=== PATIENT | male | born 1995 | race Caucasian/White ===

== ENCOUNTER 2019-12-09 07:16 | Outpatient (CLI) | payer MEDICARE, MEDICAID, SELFPAY ==
--- NOTE | 2019-12-09 07:26 | US_ITS ---
WS: [id number] ULTRASOUND ABDOMEN CLINICAL INFORMATION: RIGT FLANK PAIN COMPARISON: None. FINDINGS: Liver Size: Enlarged Craniocaudal length: 19.2 cm. Echogenicity: Normal. Surface nodularity: None. Mass (size and location): None. Bile ducts Intrahepatic ducts: Normal. Common bile duct diameter: 1.8 mm. Gallbladder Normal. Gallstones: None. Gallbladder sludge: None. Gallbladder wall thickening: None. Pericholecystic fluid: None. Sonographic [place] sign: Absent. Pancreas Not well seen Spleen Splenomegaly: None. Craniocaudal length: 12.6 cm. Right kidney: Polycystic enlarged Hydronephrosis: None. Size: 23.5 cm x 15.8 cm x 12.9 cm Polycystic kidney with largest cysts measuring 5.9 x 4.7 x 4.7 cm and 6.6 x7.7 x 6.9 cm Left kidney: Polycystic enlarged Hydronephrosis: None. Size: 5.0 cm x 13.3 cm x 12.1 cm. Polycystic kidney with largest cyst measuring 5.5 x 6.1 x 5.4 cm and 6.6 x 5.3 x 7.3 cm Abdominal aorta and IVC Visualized portions are normal. Tiny fat-containing umbilical hernia measuring 0.5 x 1.0 x 0.9 cm Ascites: None. US/US abdomen complete* [id number] IMPRESSION: 1. Hepatomegaly measuring 19.2 CM. 2. Normal gallbladder 3. Enlarged polycystic kidneys bilaterally. 4. Normal common bile duct.
== END 2019-12-09 07:17 | disposition home or self-care (01) ==
PROVIDERS: Visit Provider Internal Medicine Nephrology
DX: N28.81 Hypertrophy of kidney (principal); Q61.3 Polycystic kidney, unspecified; R16.0 Hepatomegaly, not elsewhere classified
CPT/HCPCS: 76700

== ENCOUNTER 2019-12-11 08:18 | Outpatient (CLI) | payer MEDICARE, MEDICAID, SELFPAY ==
--- NOTE | 2019-12-11 08:28 | XR_ITS ---
WS: [id number] ABDOMEN 1 VIEW(S) HISTORY: PD CATHETER OBSTRUCTION/ESRD COMPARISON: None available. Normal bowel gas pattern. No suspicious calcifications or masses. No bone abnormality. Peritoneal dialysis catheter enters through the LEFT lateral abdomen with the tip coiled over the sac rum. No obstruction along the course of the catheter is identified. XR/XR abdomen min 2V [id number] IMPRESSION: Peritoneal dialysis catheter coiled overlying the sacrum. No fracture along the catheter course.
== END 2019-12-11 08:19 | disposition home or self-care (01) ==
LOC: RAD 08:21
PROVIDERS: PCP Nurse Practitioner Family; Visit Provider Internal Medicine Nephrology
DX: T85.691A Other mechanical complication of intraperitoneal dialysis catheter, initial encounter (principal); Y84.1 Kidney dialysis as the cause of abnormal reaction of the patient, or of later complication, without mention of misadventure at the time of the procedure; N18.6 End stage renal disease
CPT/HCPCS: 74019

== ENCOUNTER 2020-01-14 08:01 | Outpatient (CLI) | payer MEDICARE, MEDICAID, SELFPAY ==
--- NOTE | 2020-01-14 08:16 | MR_ITS ---
WS: [id number] MRI HEAD WITHOUT CONTRAST TECHNIQUE: Sagittal T1, T2 axial, T2 axial FLAIR, axial and coronal T1 images, axial susceptibility w eighted imaging, axial diffusion weighted images, and coronal T2 images were obtained. CLINICAL INFORMATION: HEADACHE;TRANSPLANT WORKUP;FAM HX ANEURYSYMS COMPARISON: None. FINDINGS: No evidence of restricted diffusion to suggest acute ischemia. Ventricular system and basal cisterns are patent. Single small focus of T2 hyperintensity in the right posterior frontal lobe. No other nely picious intracranial signal abnormalities. This is likely incidental. Normal posterior fossa. Normal vascular flow voids at the skull base. No extra axial fluid collections. Proximal 7th and 8th cranial nerves are normal. Paranasal sinuses and mastoid air cells well aerated. No hemosiderin on susceptibly weighted images. Normal optic chiasm and pituitary infundibulum. Tempor al lobes and hippocampal formations are normal in appearance. MR/MR head wo con* [id number] IMPRESSION: 1. No evidence of restricted diffusion to suggest acute ischemia. 2. No suspicious intracranial signal abnormalities. Tiny focus of T2 hyperinte nsity. Posterior frontal lobe of doubtful clinical significance. 3. No hemosiderin on susceptibly weighted images. 4. Temporal lobes and hippocampal formations are normal in appearance. 5. Paranasal sinuses and mastoid air cells are well aerated.
== END 2020-01-14 08:02 | disposition home or self-care (01) ==
LOC: RADSHAW 08:09
PROVIDERS: PCP Nurse Practitioner Family; Visit Provider Internal Medicine Nephrology
DX: R51 Headache (principal); N18.6 End stage renal disease; Z99.2 Dependence on renal dialysis; Q61.3 Polycystic kidney, unspecified; Z84.89 Family history of other specified conditions
CPT/HCPCS: 70551

== ENCOUNTER 2020-06-10 07:58 | Outpatient (CLI) | payer MEDICARE, MEDICAID, SELFPAY ==
[2020-06-10 08:31] LABS: Basophils % 0.1 %; Eosinophils # 0.1 10^3/uL (0.0-0.8); Eosinophils % 1.2 %; Hematocrit 44.4 % (42.0-52.0); Hemoglobin 14.4 g/dL (11.7-16.6); Lymphocytes # 0.5 10^3/uL (0.8-4.8); Lymphocytes % 5.7 %; Mean Corpuscular HGB Conc 32.4 g/dL (30.0-36.0); Mean Corpuscular Hemoglobin 29.6 pg (28.0-34.0); Mean Corpuscular Volume 91.2 fL (80-94); Mean Platelet Volume 11.3 fL (7.4-10.4); Monocytes # 0.9 10^3/uL (0.2-0.9); Monocytes % 11.1 %; Neutrophils % 81.4 %; Nucleated Red Blood Cells % 0 %; Platelet Count 124 10^3/cmm (130-400); Red Blood Count 4.87 10^6/uL (4.1-5.3); Red Cell Distribution Width 12.1 % (12.1-15.1); White Blood Count 8.1 10^3/uL (4.0-10.0)
[2020-06-10 09:01] LABS: Albumin Level 3.5 g/dL (3.5-5.2); Anion Gap 15.4 (5-19); Blood Urea Nitrogen 44 mg/dL (6-20); Calcium 8.7 mg/dL (8.5-10.5); Carbon Dioxide 21 mmol/L (22-29); Chloride 107 mmol/L (98-107); Glomerular Filtration Rate 27.7 mL/min (90-130); Glucose 87 mg/dL (65-115); Magnesium 2.1 mg/dL (1.7-2.3); Phosphorus 3.5 mg/dL (2.5-4.5); Potassium 4.4 mmol/L (3.5-5.1); Sodium 139 mmol/L (136-145)
== END 2020-06-10 07:59 | disposition home or self-care (01) ==
PROVIDERS: PCP Nurse Practitioner Family; Visit Provider Internal Medicine Nephrology
DX: Z94.0 Kidney transplant status (principal)
CPT/HCPCS: 80069; 80197; 83735; 85025

== ENCOUNTER 2020-06-14 08:10 | Outpatient (CLI) | payer MEDICARE, MEDICAID, SELFPAY ==
[2020-06-14 08:41] LABS: Basophils % 0.3 %; Eosinophils # 0.3 10^3/uL (0.0-0.8); Eosinophils % 2.4 %; Hematocrit 44.5 % (42.0-52.0); Lymphocytes # 0.9 10^3/uL (0.8-4.8); Lymphocytes % 7.5 %; Mean Corpuscular HGB Conc 33.7 g/dL (30.0-36.0); Mean Corpuscular Hemoglobin 30.3 pg (28.0-34.0); Mean Corpuscular Volume 89.9 fL (80-94); Mean Platelet Volume 10.3 fL (7.4-10.4); Monocytes % 8.2 %; Neutrophils # 9.43 10^3/uL (1.8-7.7); Neutrophils % 79.1 %; Nucleated Red Blood Cells % 0 %; Platelet Count 207 10^3/cmm (130-400); Red Blood Count 4.95 10^6/uL (4.1-5.3); Red Cell Distribution Width 12.1 % (12.1-15.1); White Blood Count 11.9 10^3/uL (4.0-10.0)
[2020-06-14 08:56] LABS: Albumin Level 4.2 g/dL (3.5-5.2); Blood Urea Nitrogen 45 mg/dL (6-20); Calcium 9.5 mg/dL (8.5-10.5); Carbon Dioxide 22 mmol/L (22-29); Chloride 104 mmol/L (98-107); Glomerular Filtration Rate 27.7 mL/min (90-130); Glucose 95 mg/dL (65-115); Phosphorus 4.2 mg/dL (2.5-4.5); Sodium 138 mmol/L (136-145)
== END 2020-06-14 08:11 | disposition home or self-care (01) ==
PROVIDERS: PCP Nurse Practitioner Family; Visit Provider Internal Medicine Nephrology
DX: Z94.0 Kidney transplant status (principal); Z79.899 Other long term (current) drug therapy
CPT/HCPCS: 80069; 80197; 83735; 85025

== ENCOUNTER 2020-06-17 13:00 | Outpatient (CLI) | payer MEDICARE, MEDICAID, SELFPAY ==
[2020-06-17 13:48] LABS: Basophils % 0.3 %; Eosinophils # 0.1 10^3/uL (0.0-0.8); Eosinophils % 0.9 %; Hematocrit 47.5 % (42.0-52.0); Hemoglobin 15.1 g/dL (11.7-16.6); Lymphocytes # 1.3 10^3/uL (0.8-4.8); Lymphocytes % 9.7 %; Mean Corpuscular HGB Conc 31.8 g/dL (30.0-36.0); Mean Corpuscular Hemoglobin 29.3 pg (28.0-34.0); Mean Corpuscular Volume 92.1 fL (80-94); Mean Platelet Volume 10.5 fL (7.4-10.4); Monocytes % 7.7 %; Neutrophils # 10.22 10^3/uL (1.8-7.7); Neutrophils % 78.5 %; Nucleated Red Blood Cells % 0 %; Platelet Count 265 10^3/cmm (130-400); Red Blood Count 5.16 10^6/uL (4.1-5.3); Red Cell Distribution Width 12.6 % (12.1-15.1)
[2020-06-17 14:02] LABS: Albumin Level 4.6 g/dL (3.5-5.2); Anion Gap 22.4 (5-19); Blood Urea Nitrogen 46 mg/dL (6-20); Calcium 10.5 mg/dL (8.5-10.5); Carbon Dioxide 21 mmol/L (22-29); Chloride 99 mmol/L (98-107); Glomerular Filtration Rate 24.7 mL/min (90-130); Glucose 55 mg/dL (65-115); Magnesium 1.9 mg/dL (1.7-2.3); Phosphorus 4.5 mg/dL (2.5-4.5); Potassium 4.4 mmol/L (3.5-5.1); Sodium 138 mmol/L (136-145)
== END 2020-06-17 13:01 | disposition home or self-care (01) ==
LOC: LAB 13:03
PROVIDERS: PCP Nurse Practitioner Family; Visit Provider Internal Medicine Cardiovascular Disease
DX: Z94.0 Kidney transplant status (principal); N18.9 Chronic kidney disease, unspecified
CPT/HCPCS: 80069; 80197; 83735; 85025

== ENCOUNTER 2020-06-21 16:33 | Outpatient (CLI) | payer MEDICARE, MEDICAID, SELFPAY ==
[2020-06-21 17:06] LABS: Basophils % 0.2 %; Eosinophils # 0.1 10^3/uL (0.0-0.8); Eosinophils % 0.8 %; Hematocrit 44.8 % (42.0-52.0); Hemoglobin 14.4 g/dL (11.7-16.6); Lymphocytes # 1.3 10^3/uL (0.8-4.8); Lymphocytes % 7.9 %; Mean Corpuscular HGB Conc 32.1 g/dL (30.0-36.0); Mean Corpuscular Hemoglobin 29.4 pg (28.0-34.0); Mean Corpuscular Volume 91.4 fL (80-94); Monocytes # 0.7 10^3/uL (0.2-0.9); Monocytes % 4.5 %; Neutrophils # 14.05 10^3/uL (1.8-7.7); Neutrophils % 84.9 %; Nucleated Red Blood Cells % 0 %; Platelet Count 221 10^3/cmm (130-400); White Blood Count 16.5 10^3/uL (4.0-10.0)
== END 2020-06-21 16:34 | disposition home or self-care (01) ==
LOC: LAB 16:36
PROVIDERS: PCP Nurse Practitioner Family; Visit Provider Internal Medicine
DX: Z94.0 Kidney transplant status (principal)
CPT/HCPCS: 80197; 85025

== ENCOUNTER 2020-06-28 14:20 | Outpatient (CLI) | payer MEDICARE, MEDICAID, SELFPAY ==
[2020-06-28 14:38] LABS: Basophils % 0.3 %; Eosinophils # 0.2 10^3/uL (0.0-0.8); Eosinophils % 2.1 %; Hematocrit 46.5 % (42.0-52.0); Hemoglobin 14.7 g/dL (11.7-16.6); Lymphocytes # 1.2 10^3/uL (0.8-4.8); Mean Corpuscular HGB Conc 31.6 g/dL (30.0-36.0); Mean Corpuscular Hemoglobin 29.5 pg (28.0-34.0); Mean Corpuscular Volume 93.2 fL (80-94); Monocytes # 0.5 10^3/uL (0.2-0.9); Monocytes % 6.4 %; Neutrophils # 5.57 10^3/uL (1.8-7.7); Neutrophils % 74.3 %; Nucleated Red Blood Cells % 0 %; Platelet Count 157 10^3/cmm (130-400); Red Blood Count 4.99 10^6/uL (4.1-5.3); Red Cell Distribution Width 14.2 % (12.1-15.1); White Blood Count 7.5 10^3/uL (4.0-10.0)
[2020-06-28 15:22] LABS: Albumin Level 4.2 g/dL (3.5-5.2); Anion Gap 19.7 (5-19); Blood Urea Nitrogen 29 mg/dL (6-20); Carbon Dioxide 19 mmol/L (22-29); Chloride 109 mmol/L (98-107); Glomerular Filtration Rate 38.4 mL/min (90-130); Glucose 75 mg/dL (65-115); Phosphorus 4.4 mg/dL (2.5-4.5); Potassium 4.7 mmol/L (3.5-5.1); Sodium 143 mmol/L (136-145)
== END 2020-06-28 14:21 | disposition home or self-care (01) ==
LOC: LAB 14:22
PROVIDERS: Visit Provider Internal Medicine Sleep Medicine
DX: Z94.0 Kidney transplant status (principal)
CPT/HCPCS: 80069; 80197; 83735; 85025

== ENCOUNTER 2020-07-26 13:04 | Outpatient (CLI) | payer MEDICARE, MEDICAID, SELFPAY ==
[2020-07-26 13:33] LABS: Basophils % 0.4 %; Eosinophils # 0.1 10^3/uL (0.0-0.8); Eosinophils % 1.2 %; Hematocrit 43.9 % (42.0-52.0); Hemoglobin 14.2 g/dL (11.7-16.6); Lymphocytes # 1.3 10^3/uL (0.8-4.8); Lymphocytes % 17.3 %; Mean Corpuscular HGB Conc 32.3 g/dL (30.0-36.0); Mean Corpuscular Hemoglobin 29.3 pg (28.0-34.0); Mean Corpuscular Volume 90.5 fL (80-94); Mean Platelet Volume 11.2 fL (7.4-10.4); Monocytes # 0.6 10^3/uL (0.2-0.9); Monocytes % 8.4 %; Neutrophils # 5.39 10^3/uL (1.8-7.7); Neutrophils % 71.8 %; Nucleated Red Blood Cells % 0 %; Platelet Count 190 10^3/cmm (130-400); Red Blood Count 4.85 10^6/uL (4.1-5.3); Red Cell Distribution Width 13.2 % (12.1-15.1); White Blood Count 7.5 10^3/uL (4.0-10.0)
[2020-07-26 13:58] LABS: Albumin Level 4.3 g/dL (3.5-5.2); Anion Gap 19.5 (5-19); Blood Urea Nitrogen 18 mg/dL (6-20); Calcium 8.9 mg/dL (8.5-10.5); Carbon Dioxide 20 mmol/L (22-29); Chloride 106 mmol/L (98-107); Glomerular Filtration Rate 61.3 mL/min (90-130); Glucose 72 mg/dL (65-115); Magnesium 1.7 mg/dL (1.7-2.3); Phosphorus 3.7 mg/dL (2.5-4.5); Potassium 4.5 mmol/L (3.5-5.1); Sodium 141 mmol/L (136-145)
== END 2020-07-26 13:05 | disposition home or self-care (01) ==
LOC: LAB 13:06
PROVIDERS: Visit Provider Internal Medicine Sleep Medicine
DX: Z94.0 Kidney transplant status (principal)
CPT/HCPCS: 80069; 80197; 83735; 85025

== ENCOUNTER 2020-08-03 09:10 | Outpatient (CLI) | payer MEDICARE, MEDICAID, SELFPAY ==
[2020-08-03 09:45] LABS: Basophils % 0.4 %; Eosinophils # 0.2 10^3/uL (0.0-0.8); Eosinophils % 2.4 %; Hematocrit 47.8 % (42.0-52.0); Hemoglobin 15.5 g/dL (11.7-16.6); Lymphocytes # 1.4 10^3/uL (0.8-4.8); Lymphocytes % 17.3 %; Mean Corpuscular HGB Conc 32.4 g/dL (30.0-36.0); Mean Corpuscular Hemoglobin 29.1 pg (28.0-34.0); Mean Corpuscular Volume 89.7 fL (80-94); Mean Platelet Volume 10.9 fL (7.4-10.4); Monocytes # 0.7 10^3/uL (0.2-0.9); Monocytes % 8.4 %; Neutrophils # 5.57 10^3/uL (1.8-7.7); Neutrophils % 70.5 %; Nucleated Red Blood Cells % 0 %; Platelet Count 179 10^3/cmm (130-400); Red Blood Count 5.33 10^6/uL (4.1-5.3); Red Cell Distribution Width 13.4 % (12.1-15.1); White Blood Count 7.9 10^3/uL (4.0-10.0)
[2020-08-03 10:11] LABS: Albumin Level 4.7 g/dL (3.5-5.2); Anion Gap 14.6 (5-19); Blood Urea Nitrogen 18 mg/dL (6-20); Calcium 9.6 mg/dL (8.5-10.5); Carbon Dioxide 26 mmol/L (22-29); Chloride 107 mmol/L (98-107); Glomerular Filtration Rate 56.6 mL/min (90-130); Glucose 90 mg/dL (65-115); Magnesium 1.7 mg/dL (1.7-2.3); Phosphorus 3.5 mg/dL (2.5-4.5); Potassium 4.6 mmol/L (3.5-5.1); Sodium 143 mmol/L (136-145)
[2020-08-06 01:03] LABS: BK VIRUS DNA, QN PCR NO DNA DETECTED copies/mL; SOURCE BLOOD
== END 2020-08-03 09:11 | disposition home or self-care (01) ==
LOC: LAB 09:12
PROVIDERS: Visit Provider Internal Medicine Sleep Medicine
DX: Z94.0 Kidney transplant status (principal)
CPT/HCPCS: 80069; 80197; 83735; 85025; 87798

== ENCOUNTER 2020-08-12 15:49 | Outpatient (CLI) | payer MEDICARE, MEDICAID, SELFPAY ==
[2020-08-12 16:16] LABS: Basophils % 0.3 %; Eosinophils # 0.2 10^3/uL (0.0-0.8); Eosinophils % 2.6 %; Hematocrit 46.3 % (42.0-52.0); Hemoglobin 14.7 g/dL (11.7-16.6); Lymphocytes # 1.1 10^3/uL (0.8-4.8); Lymphocytes % 18.4 %; Mean Corpuscular HGB Conc 31.7 g/dL (30.0-36.0); Mean Corpuscular Hemoglobin 29.5 pg (28.0-34.0); Mean Corpuscular Volume 92.8 fL (80-94); Mean Platelet Volume 11.3 fL (7.4-10.4); Monocytes # 0.7 10^3/uL (0.2-0.9); Monocytes % 12.5 %; Neutrophils # 3.78 10^3/uL (1.8-7.7); Neutrophils % 65.9 %; Nucleated Red Blood Cells % 0 %; Platelet Count 143 10^3/cmm (130-400); Red Blood Count 4.99 10^6/uL (4.1-5.3); Red Cell Distribution Width 14.1 % (12.1-15.1); White Blood Count 5.8 10^3/uL (4.0-10.0)
[2020-08-12 18:08] LABS: Albumin Level 4.7 g/dL (3.5-5.2); Anion Gap 21.8 (5-19); Blood Urea Nitrogen 17 mg/dL (6-20); Carbon Dioxide 22 mmol/L (22-29); Chloride 99 mmol/L (98-107); Glomerular Filtration Rate 66.7 mL/min (90-130); Magnesium 1.7 mg/dL (1.7-2.3); Phosphorus 4.3 mg/dL (2.5-4.5); Potassium 3.8 mmol/L (3.5-5.1); Sodium 139 mmol/L (136-145)
[2020-08-13 11:24] LABS: Glucose 35 mg/dL (65-115)
== END 2020-08-12 15:50 | disposition home or self-care (01) ==
LOC: LAB 15:52
PROVIDERS: Visit Provider Internal Medicine Sleep Medicine
DX: Z94.0 Kidney transplant status (principal)
CPT/HCPCS: 80069; 80197; 83735; 85025

== ENCOUNTER 2020-08-16 14:04 | Outpatient (CLI) | payer MEDICARE, MEDICAID, SELFPAY ==
[2020-08-16 14:35] LABS: Basophils % 0.4 %; Eosinophils # 0.2 10^3/uL (0.0-0.8); Hematocrit 48.4 % (42.0-52.0); Hemoglobin 15.6 g/dL (11.7-16.6); Lymphocytes # 1.5 10^3/uL (0.8-4.8); Mean Corpuscular HGB Conc 32.2 g/dL (30.0-36.0); Mean Corpuscular Hemoglobin 29.5 pg (28.0-34.0); Mean Corpuscular Volume 91.7 fL (80-94); Mean Platelet Volume 11.2 fL (7.4-10.4); Monocytes # 0.6 10^3/uL (0.2-0.9); Monocytes % 9.1 %; Neutrophils # 4.56 10^3/uL (1.8-7.7); Neutrophils % 65.9 %; Nucleated Red Blood Cells % 0 %; Platelet Count 163 10^3/cmm (130-400); Red Blood Count 5.28 10^6/uL (4.1-5.3); Red Cell Distribution Width 13.8 % (12.1-15.1); White Blood Count 6.9 10^3/uL (4.0-10.0)
[2020-08-16 15:00] LABS: Albumin Level 4.7 g/dL (3.5-5.2); Blood Urea Nitrogen 22 mg/dL (6-20); Calcium 9.7 mg/dL (8.5-10.5); Carbon Dioxide 21 mmol/L (22-29); Chloride 105 mmol/L (98-107); Glomerular Filtration Rate 40.6 mL/min (90-130); Glucose 58 mg/dL (65-115); Phosphorus 4.1 mg/dL (2.5-4.5); Sodium 142 mmol/L (136-145)
[2020-08-16 15:03] LABS: Anion Gap 20.6 (5-19); Potassium 4.6 mmol/L (3.5-5.1)
== END 2020-08-16 14:05 | disposition home or self-care (01) ==
LOC: LAB 14:07
PROVIDERS: Visit Provider Internal Medicine Sleep Medicine
DX: Z94.0 Kidney transplant status (principal)
CPT/HCPCS: 80069; 80197; 83735; 85025

== ENCOUNTER 2020-10-07 14:51 | Outpatient (CLI) | payer MEDICARE, MEDICAID, SELFPAY ==
--- NOTE | 2020-10-07 15:01 | USCV_ITS ---
Yovani Real Age: 25 Gender: M : 1995 Exam Date: 10/07/2020 15:05 Ordering Phys: MAMIE HUERTA MD Technologist: Bhavna Houston Exam Location: [facility] [place] Indication: TRANSPLANT Findings See worksheet Conclusions Renal Transplant Measures 13.7x 8.3 X 7.5 Cm. Cortex Measures 2.6 Cm. No Hydronephrosis. Preserved Cortical Medullary Differentiation. Normal Intrarenal Resistive Indices. Renal Vein Is Patent. No Renal Vein Thrombosis. Peak Systolic Velocity At The Anastomosis Measures 245 Cm/S Within Normal Limits. Normal Systolic Velocities Proximal And Distal To The Anastomosis. No Peritransplant Fluid Collections. Jeb Myers MD (Electronically Signed) Final Date: 08 October 2020 12:10 S
== END 2020-10-07 14:52 | disposition home or self-care (01) ==
LOC: RAD 14:57
PROVIDERS: Visit Provider Hospitalist
DX: Z94.0 Kidney transplant status (principal)
CPT/HCPCS: 93975

== ENCOUNTER 2020-10-12 09:35 | Outpatient (CLI) | payer MEDICARE, MEDICAID, SELFPAY ==
[2020-10-12 10:11] LABS: Basophils % 0.6 %; Eosinophils # 0.3 10^3/uL (0.0-0.8); Hematocrit 50.3 % (42.0-52.0); Lymphocytes # 1.3 10^3/uL (0.8-4.8); Lymphocytes % 19.4 %; Mean Corpuscular HGB Conc 31.8 g/dL (30.0-36.0); Mean Corpuscular Hemoglobin 27.8 pg (28.0-34.0); Mean Corpuscular Volume 87.5 fL (80-94); Mean Platelet Volume 11.3 fL (7.4-10.4); Monocytes # 0.6 10^3/uL (0.2-0.9); Monocytes % 9.3 %; Neutrophils # 4.42 10^3/uL (1.8-7.7); Neutrophils % 65.1 %; Nucleated Red Blood Cells % 0 %; Platelet Count 202 10^3/cmm (130-400); Red Blood Count 5.75 10^6/uL (4.1-5.3); Red Cell Distribution Width 12.7 % (12.1-15.1); White Blood Count 6.8 10^3/uL (4.0-10.0)
[2020-10-12 10:31] LABS: Albumin Level 4.8 g/dL (3.5-5.2); Anion Gap 17.9 (5-19); Blood Urea Nitrogen 23 mg/dL (6-20); Calcium 9.6 mg/dL (8.5-10.5); Carbon Dioxide 22 mmol/L (22-29); Chloride 106 mmol/L (98-107); Glomerular Filtration Rate 45.8 mL/min (90-130); Glucose 84 mg/dL (65-115); Magnesium 1.8 mg/dL (1.7-2.3); Phosphorus 4.6 mg/dL (2.5-4.5); Potassium 4.9 mmol/L (3.5-5.1); Sodium 141 mmol/L (136-145)
== END 2020-10-12 09:36 | disposition home or self-care (01) ==
LOC: LAB 09:42
PROVIDERS: PCP Internal Medicine Sleep Medicine; Visit Provider Internal Medicine Sleep Medicine
DX: Z94.0 Kidney transplant status (principal)
CPT/HCPCS: 80069; 80197; 83735; 85025